=== PATIENT | female | born 1995 | race African-American/Black ===

== ENCOUNTER 2021-02-24 02:12 | Emergency (ER) | payer SELFPAY ==
[2021-02-24 03:19] LABS: Bilirubin Neg (Negative); Blood, Urine Negative (Negative); Clarity Clear (Clear); Glucose, Urine (Dipstick) Normal (Negative); Ketone, Urine 15 mg/dL (Negative); Leukocyte Negative (Negative); Nitrite Negative (Negative); Protein, Urine (Dipstick) 15 mg/dl (Neg-Trace)
[2021-02-24 03:20] LABS: Pregnancy Test - Urine (BHCG) Negative (Negative); Pregu Control Background? CLEAR/WHITE (CLR/WHITE); Pregu Control Bar Appear? YES (CONTROL BAR)
== END 2021-02-24 04:47 | disposition home or self-care (01) ==
LOC: CSHERS 02:12
DX: M54.50 Low back pain, unspecified (principal); R10.2 Pelvic and perineal pain
CPT/HCPCS: 81003; 81025; 99283

== ENCOUNTER 2021-08-11 14:52 | Emergency (ER) | payer OTHER | END 2021-08-11 15:38 | disposition home or self-care (01) | LOC: CSHERS 14:52 | DX: U07.1 COVID-19 (principal) | CPT/HCPCS: 99283; U0003; U0005 ==